=== PATIENT | male | born 1975 | race Caucasian/White ===

== ENCOUNTER 2020-10-09 14:32 | Emergency (ER) | payer BC, OTHER ==
[2020-10-09 18:33] LABS: HEMOGLOBIN 17.7 gm/dl (14.0-17.5); RED BLOOD COUNT 5.27 M/UL (4.20-5.50); WHITE BLOOD COUNT 3.7 K/UL (4.5-11.0)
[2020-10-09 18:45] LABS: BUN/CREATININE RATIO 9 (0-10)
[2020-10-09] MEDS ORDERED: ZITHROMAX500 MG PO (20:15)
== END 2020-10-09 21:00 | disposition home or self-care (01) ==
LOC: ER1 14:32
PROVIDERS: Preventive Medicine Occupational Medicine
DX: U07.1 COVID-19 (principal); I10 Essential (primary) hypertension; Z91.013 Allergy to seafood
CPT/HCPCS: 36415; 71045; 80053; 85025; 99283; M0239

== ENCOUNTER → 2020-11-13 | Outpatient (CLI) | payer BC, OTHER ==
[~2020-11-13] MED LIST: ZITHROMAX500 MG PO
== END ==
LOC: KOH-I 15:33
DX: M54.5 Low back pain (principal)
CPT/HCPCS: 72110

== ENCOUNTER 2021-03-30 12:04 | Emergency (ER) | payer BC, OTHER ==
[~2021-03-30] VITALS: Ht 154.9 cm; Wt 145.6 kg
[2021-03-30 12:34] LABS: HEMOGLOBIN 17.9 gm/dl (14.0-17.5); RED BLOOD COUNT 5.11 M/UL (4.20-5.50); WHITE BLOOD COUNT 5.2 K/UL (4.5-11.0)
[2021-03-30 13:12] LABS: BUN/CREATININE RATIO 11 (0-10)
== END 2021-03-30 14:32 | disposition home or self-care (01) ==
LOC: ER1 12:04
PROVIDERS: Physician Assistant
DX: Z23 Encounter for immunization (principal); U07.1 COVID-19; I10 Essential (primary) hypertension; R79.89 Other specified abnormal findings of blood chemistry
CPT/HCPCS: 80053; 85025; 99283; M0243

== ENCOUNTER → 2021-08-05 | Outpatient (CLI) | payer BC | LOC: KOH-I 11:00 | DX: R74.8 Abnormal levels of other serum enzymes (principal); K76.0 Fatty (change of) liver, not elsewhere classified | CPT/HCPCS: 76705 ==